=== PATIENT | male | born 1975 | race African-American/Black ===

== ENCOUNTER 2019-06-25 14:06 | Emergency (ER) | payer OTHER ==
--- NOTE | 2019-06-25 14:59 | ER Document Report ---
ED Medical Screen (RME) - General Chief Complaint: High Blood Pressure Stated Complaint: DIZZINESS Time Seen by Provider: 06/25/19 14:33 Notes: Patient is a 44-year-old male who presents the emergency department with a chief complaint of high blood pressure and dizziness. He also has some nausea, but has not vomited. Patient states that he started to have his symptoms this afternoon. He missed his dose of propanolol yesterday. He takes 120 mg of propanolol daily. He took his dose today. He denies any weakness, but his friend who is at bedside states that he was weak his legs today. Exam: 5 out of 5 strength in bilateral upper and lower extremities. I have greeted and performed a rapid initial assessment of this patient. A comprehensive ED assessment and evaluation of the patient, analysis of test results and completion of medical decision making process will be conducted by an additional ED providers. TRAVEL OUTSIDE OF THE [place] IN LAST 30 DAYS: No - Related Data Allergies/Adverse Reactions: nitroglycerin Adverse Reaction (Verified 06/25/19 14:40) Bradycardia Past Medical History - Social History Frequency of alcohol use: None Drug Abuse: None - Past Medical History Cardiac Medical History: Reports: Hx Hypertension Renal/ Medical History: Denies: Hx Peritoneal Dialysis Past Surgical History: Reports: Hx Cardiac Catheterization - 2011, Hx Orthopedic Surgery - left knee Physical Exam - Vital signs Vitals: Temp Pulse Resp BP Pulse Ox 98.2 F 56 L 15 164/103 H 98 06/25/19 14:17 06/25/19 14:17 06/25/19 14:17 06/25/19 14:17 06/25/19 14:17 Course - Vital Signs Vital signs: Temp Pulse Resp BP Pulse Ox 98.2 F 56 L 15 164/103 H 98 06/25/19 14:17 06/25/19 14:17 06/25/19 14:17 06/25/19 14:17 06/25/19 14:17
--- NOTE | 2019-06-25 15:10 | ER Document Report ---
ED General - General Chief Complaint: High Blood Pressure Stated Complaint: DIZZINESS Time Seen by Provider: 06/25/19 14:33 Primary Care Provider: [facility] [Provider Group] - Follow up in 3-5 days TRAVEL OUTSIDE OF THE [place] IN LAST 30 DAYS: No - HPI Notes: 44-year-old male to the emergency department with complaints of elevated blood pressure, dizziness and headache that began last night. He states that he typically takes propanolol every day for his high blood pressure. He states that he missed his dose last night. After missing his dose he started to develop a headache with associated dizziness. He states that he feels like he is spinning. He states that the headache is in both the front and the back. He states that he was able to rest last night but woke again this morning with a headache. He took a propanolol this morning but his headache persisted. He states that he has a history of a headache syndrome but had a full work-up in 2012 to include heart cath and tilt table test. He states that he was seen by a neurologist at the time but nothing was really found. He denies any fevers, chills, neck pain. He states that this headache is typical of his others but he just has not had good control of it. He admits to nausea but no vomiting. He denies any abdominal pain, chest pain, shortness of breath, leg swelling, urinary complaints. He currently does not see anyone for his headaches. He states he gets these headaches 1-2 times a week. That he came into the emergency department today because he was concerned that his blood pressure was so high. - Related Data Allergies/Adverse Reactions: nitroglycerin Adverse Reaction (Verified 06/25/19 14:40) Bradycardia Past Medical History - General Information source: Patient - Social History Smoking Status: Never Smoker Frequency of alcohol use: None Drug Abuse: None Family History: Hypertension Patient has suicidal ideation: No Patient has homicidal ideation: No - Past Medical History Cardiac Medical History: Reports: Hx Hypertension Renal/ Medical History: Denies: Hx Peritoneal Dialysis Past Surgical History: Reports: Hx Cardiac Catheterization - 2011, Hx Orthopedic Surgery - left knee Review of Systems - Review of Systems Constitutional: denies: Chills, Fever EENT: denies: Eye pain, Eye discharge, Blurred vision, Double vision Cardiovascular: Dizziness. denies: Chest pain, Palpitations, Dyspnea, Syncope, Lightheaded Respiratory: denies: Cough, Short of breath Gastrointestinal: Nausea. denies: Abdominal pain, Diarrhea, Vomiting Genitourinary: No symptoms reported Musculoskeletal: No symptoms reported. denies: Neck pain Skin: No symptoms reported Neurological/Psychological: Weakness, Headaches. denies: Numbness, Tingling -: Yes All other systems reviewed and negative Physical Exam - Vital signs Vitals: Temp Pulse Resp BP Pulse Ox 98.2 F 56 L 15 164/103 H 98 06/25/19 14:17 06/25/19 14:17 06/25/19 14:17 06/25/19 14:17 06/25/19 14:17 Interpretation: Normal - General General appearance: Alert In distress: Mild - Mild pain distress from headache - HEENT Head: Normocephalic Eyes: Normal Conjunctiva: Normal Pupils: PERRL Ears: Normal External canal: Normal Tympanic membrane: Normal Sinus: Normal Nasal: Normal Mouth/Lips: Normal Mucous membranes: Normal Pharynx: Normal Neck: Normal. No: Meningismus - Respiratory Respiratory status: No respiratory distress Chest status: Nontender Breath sounds: Normal Chest palpation: Normal - Cardiovascular Rhythm: Regular Heart sounds: Normal auscultation Murmur: No - Abdominal Inspection: Normal Distension: No distension Bowel sounds: Normal Tenderness: Nontender Organomegaly: No organomegaly - Back Back: Normal, Nontender - Neurological Neuro grossly intact: Yes Cognition: Normal Orientation: AAOx4 [place] Coma Scale Eye Opening: Spontaneous [place] Coma Scale Verbal: Oriented [place] Coma Scale Motor: Obeys Commands [place] Coma Scale Total: 15 Speech: Normal Cranial nerves: Normal. No: Facial palsy, Forehead sparing, Sensory deficit, Tongue deviation Cerebellar coordination: Normal, Heel-murphy. 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 No: Pronator drift - Will [id number] bilaterally Sensory: Normal - Psychological Associated symptoms: Normal affect, Normal mood - Skin Skin Temperature: Warm Skin Moisture: Dry Skin Color: Normal Course - Re-evaluation Re-evalutation: 06/25/19 19:14 Impression: Headache, elevated blood pressure, dizziness. Patient was given Reglan and Benadryl and fluids for headache. This is a headache that is typical for him but he missed his propanolol dose last night and his headache well controlled. He has no neurological deficit. He is able to ambulate about the department without any difficulty. He states his dizziness is improved after Reglan and Benadryl. He has a negative head CT and labs are very reassuring. Once his headache and dizziness was controlled his blood pressure responded and now he is normotensive. Doubt need for further imaging or lab work. Low suspicion for SAH or infectious etiology. Given his history do think that his propanolol was used to help control these headaches but they are not as well- controlled as they could be. We will send patient to see neurology for further discussion of how to manage his headache syndrome. I have encouraged him to return if he has worsening symptoms with intractable headache, intractable vomiting, fever, neck pain, chest pain, shortness of breath, syncope. He agrees with the plan and would like to be discharged home. - Vital Signs Vital signs: Temp Pulse Resp BP Pulse Ox 98.7 F 56 L 12 113/86 H 99 06/25/19 19:01 06/25/19 14:17 06/25/19 19:01 06/25/19 19:01 06/25/19 19:01 - Laboratory Result Diagrams: 06/25/19 15:00 06/25/19 15:00 Laboratory results interpreted by me: 06/25/19 15:00 Total Bilirubin 1.6 H Total Protein 8.6 H - Diagnostic Test Radiology reviewed: Image reviewed, Reports reviewed - EKG Interpretation by Mi EKG shows normal: Sinus rhythm Rate: Normal Rhythm: NSR When compared to previous EKG there are: Previous EKG unavailable Additional EKG results interpreted by me: 06/25/19 19:17 No STEMI, no ST changes. No comparison. Discharge - Discharge Clinical Impression: Elevated blood pressure reading Headache Qualifiers: Headache type: unspecified Headache chronicity pattern: acute headache Intractability: not intractable Qualified Code(s): R51 - Headache Condition: Stable Disposition: HOME, SELF-CARE Instructions: Headache ([facility]) Additional Instructions: FOLLOW UP WITH THE NEUROLOGIST LISTED TO HELP WITH YOUR HEADACHE CONTROL. RETURN IF WORSENING HEADACHE, INTRACTABLE VOMITING, NECK STIFFNESS, FEVERS, CHEST PAIN, SHORTNESS OF BREATH. PUSH FLUIDS. TAKE YOUR PROPANOL EVERY DAY PRESCRIBED. Prescriptions: Metoclopramide HCl [Reglan] 5 mg PO TID #10 tablet Forms: Return to Work Referrals: [facility] [Provider Group] - Follow up in 3-5 days
[2019-06-25 15:16] LABS: ABSOLUTE EOSINOPHILS # (AUTO) 0.2 10^3/uL (0.0-0.6); ABSOLUTE LYMPHOCYTES (AUTO) 2.1 10^3/uL (0.5-4.7); ABSOLUTE MONOCYTES (AUTO) 0.4 10^3/uL (0.1-1.4); ABSOLUTE NEUT (AUTO) 3.1 10^3/uL (1.7-8.2); BASOPHILS % (AUTO) 0.7 % (0-2); EOSINOPHILS % (AUTO) 3.2 % (0-6); HEMATOCRIT 42.1 % (37.9-51.0); HEMOGLOBIN 14.4 g/dL (13.5-17.0); LYMPHOCYTES % (AUTO) 36.6 % (13-45); MEAN CORPUSCULAR HEMOGLOBIN 28.8 pg (27.0-33.4); MEAN CORPUSCULAR HGB CONC 34.2 g/dL (32.0-36.0); MEAN CORPUSCULAR VOLUME 84 fl (80-97); MONOCYTES % (AUTO) 7.1 % (3-13); PLATELET COUNT 230 10^3/uL (150-450); RED BLOOD COUNT 4.99 10^6/uL (4.35-5.55); RED CELL DISTRIBUTION WIDTH 13.3 % (11.5-14.0); SEGMENTED NEUTROPHILS % (AUTO) 52.4 % (42-78); TOTAL CELLS COUNTED % (AUTO) 100 %; WHITE BLOOD COUNT 5.8 10^3/uL (4.0-10.5)
[2019-06-25 15:34] LABS: ALBUMIN 4.7 g/dL (3.5-5.0); ALKALINE PHOSPHATASE 78 U/L (38-126); ANION GAP 8 (5-19); ASPARTATE AMINO TRANSFERASE 37 U/L (17-59); BILIRUBIN,DIRECT 0.3 mg/dL (0.0-0.4); BILIRUBIN,TOTAL 1.6 mg/dL (0.2-1.3); BLOOD UREA NITROGEN 10 mg/dL (7-20); CALCIUM 9.8 mg/dL (8.4-10.2); CARBON DIOXIDE 29 mmol/L (22-30); CHLORIDE 103 mmol/L (98-107); GLUCOSE 103 mg/dL (75-110); POTASSIUM 3.9 mmol/L (3.6-5.0); TOTAL PROTEIN 8.6 g/dL (6.3-8.2)
[2019-06-25] MEDS ORDERED: DIPHENHYDRAMINE HCL 50 MG/ML VIAL IV ONE (15:37)
[2019-06-25] MEDS ORDERED: METOCLOPRAMIDE HCL INJ/PF 10 MG/2 ML SDV IV ONE (15:37)
[2019-06-25] MEDS ORDERED: NORMAL SALINE 1000 ML 1,000 ML IV ONE (15:37)
--- NOTE | 2019-06-25 16:09 | RADIOLOGY REPORT (SQ) ---
EXAM DESCRIPTION: CT HEAD WITHOUT COMPLETED DATE/TIME: 06/25/2019 3:56 pm REASON FOR STUDY: Dizziness/weakness COMPARISON: None. TECHNIQUE: Axial images acquired through the brain without intravenous contrast. Images reviewed wit h bone, brain and subdural windows. Images stored on PACS. All CT scanners at this facility use dose modulation, iterative reconstruction, and/or weight based d osing when appropriate to reduce radiation dose to as low as reasonably achievable (ALARA). [facility]: Dose Right [facility]: CareDose [facility]: Dose Right [facility]: Teradose 4D [facility]: [email or web address] RADIATION DOSE: CT Rad equipment meets quality standard of care and radiation dose reduction techniq ues were employed. CTDIvol: 53.2 mGy. DLP: 1017 mGy-cm.. LIMITATIONS: None. FINDINGS: VENTRICLES: Normal size and contour. CEREBRUM: No masses. No hemorrhage. No midline shift. Age appropriate white matter. No evidence for a cute infarction. CEREBELLUM: No masses. No hemorrhage. No alteration of density. No evidence for acute infarction. EXTRA-AXIAL SPACES: No fluid collections. ORBITS AND GLOBE: No intra- or extraconal masses. Normal contour of globe without masses. CALVARIUM: No fracture. PARANASAL SINUSES: No fluid or mucosal thickening. SOFT TISSUES: No mass or hematoma. OTHER: No other significant finding. IMPRESSION: NO ACUTE INTRACRANIAL FINDINGS. EVIDENCE OF ACUTE STROKE: NO. TECHNICAL DOCUMENTATION: JOB ID: [id number] Quality ID # [id number]: Final reports with documentation of one or more dose reduction techniques (e.g., Au tomated exposure control, adjustment of the mA and/or kV according to patient size, use of iterative reconstruction technique) 2010 [employer]- All Rights Reserved Reading location - IP/workstation name: [email or web address]
[2019-06-25 19:06] VITALS: BP 113/86
--- NOTE | 2019-06-26 13:19 | EKG REPORT ---
SEVERITY:- ABNORMAL ECG - SINUS RHYTHM PROBABLE LEFT VENTRICULAR HYPERTROPHY : Confirmed by: Ramakrishna Clements MD 26-Jun-2019 13:18:52
== END 2019-06-25 19:11 | disposition home or self-care (01) ==
LOC: ER 14:06
DX: I10 Essential (primary) hypertension (principal); T44.7X6A Underdosing of beta-adrenoreceptor antagonists, initial encounter; Z91.14 Patient's other noncompliance with medication regimen; R42 Dizziness and giddiness; R51 Headache; R11.0 Nausea; R53.1 Weakness; Z86.69 Personal history of other diseases of the nervous system and sense organs
CPT/HCPCS: 93005; 99284; 96361; 96374; 96375; 36415; 85025; 80053; 70450; 93010; J1200; J2765; J7030